=== PATIENT | male | born 1940 | race Caucasian/White ===

== ENCOUNTER → 2016-11-13 | Outpatient (CLI) | payer OTHER ==
[2016-11-13 13:34] LABS: Blood Urea Nitrogen 19 mg/dL (9-20); Non-African American GFR(MDRD) >60 (>60 ml/min/1.73 sqM)
--- NOTE | 2016-11-13 15:55 | CT ---
EXAMINATION TYPE: CT chest wo/w con DATE OF EXAM: 11/13/2016 COMPARISON: NONE HISTORY: 75 year-old male shortness of breath, Dyspnea TECHNIQUE: Contiguous axial scanning of the chest before and after the administration of 100 ml mL of Omnipaque 300. Coronal/sagittal reconstructions performed. CT DLP: 1443mGycm. Automatic exposure control utilized for a dose reduction. FINDINGS: There is heterogeneous enlargement of the right lobe of the thyroid gland which has a substernal exte nsion extending 2.9 cm below the sternal notch. There is nodular extension measures 4.4 cm and has he terogeneous central hypodensity. Small 1.1 cm hypodensity in the diminutive left lobe of the thyroid gland which is also seen somewhat low lying. The heart is normal size without pericardial effusion. Mild coronary vessel calcifications are presen t in remarkable for coronary artery disease. Ascending aorta is ectatic at 3.9 cm. Mild atherosclerotic arch calcifications with a conventional ar ch vessel branching anatomy. Upper descending thoracic aorta is mildly aneurysmal at 3.1 cm. Ectatic lower descending thoracic aorta at 2.7 cm. Enlarged right and left main pulmonary arteries measuring 2.9 and 3.0 cm, respectively, compatible wi th underlying pulmonary arterial hypertension. Scattered nonenlarged mediastinal lymph nodes are present. Visualized upper abdomen shows scattered subcentimeter hypodensities within the liver. There is also a 1 cm area of nodular enhancement in the right hepatic dome axial image 56. Mild diffuse bronchial wall thickening and mild to moderate upper lung predominant centrilobular emph ysema. There is mild right basilar bronchiectasis. Calcified granuloma at the medial posterior right base. Strandy atelectasis/scar within the inferior lingula. No consolidation or pleural effusion. Bones: Mild to moderate multilevel degenerative disc disease. There is a central disc herniation at T 3-T4 and disc osteophyte complex at T8-T9. No osseous destructive process. IMPRESSION: 1. Heterogeneous enlargement of the right lobe of the thyroid gland which shows substernal extension by 2.9 cm. An underlying nodule could measure up to 4.4 cm. Thyroid ultrasound can further evaluate. 2. COPD with mild to moderate emphysema and pulmonary arterial hypertension. 3. Mild right basilar bronchiectasis this probably chronic postinflammatory. Additional scattered are as of atelectasis or scarring in the lower lungs. 4. A few subcentimeter hypodensities within the liver are nonspecific and probably represent cysts. T here is a 1 cm area of nodular enhancement in the right hepatic dome which can be reassessed with six -month follow-up ultrasound to exclude any enlarging lesions.
== END | disposition home or self-care (01) ==
LOC: RADCTMAIN 11:41
PROVIDERS: ATTEND Family Medicine
DX: J43.9 Emphysema, unspecified (principal); J47.9 Bronchiectasis, uncomplicated; I27.2 Other secondary pulmonary hypertension; E04.1 Nontoxic single thyroid nodule; Z00.00 Encounter for general adult medical examination without abnormal findings
CPT/HCPCS: 82565; 84520; 71270; 36415; Q9967

== ENCOUNTER 2017-04-01 12:09 | Day surgery (SDC) | payer MEDICARE, OTHER ==
[2017-04-01 12:57] VITALS: TEMP 98
[2017-04-01 13:04] LABS: Glucose,Whole Blood 152 mg/dL (75-99)
[2017-04-01 14:18] VITALS: BP 150/84; PULSE 64; RESP 18
--- NOTE | 2017-04-01 14:52 | US ---
EXAMINATION TYPE: US FNA thyroid DATE OF EXAM: 04/01/2017 COMPARISON: Ultrasound thyroid 01/28/2017 HISTORY: Thyroid nodule. Maximal barrier technique was utilized. After informed consent, skin overlying the lesion was locali zed with ultrasound and the overlying skin prepped and draped. Ultrasound was utilized using sterile technique. Lidocaine was used for local anesthesia. Five passes with a 25-gauge needle were made int o the lower pole right thyroid nodule and aspirated specimen was submitted to cytology. Following th e procedure hemostasis achieved. No immediate complication. The patient discharged in stable condit ion. IMPRESSION: STATUS POST ULTRASOUND GUIDED FINE NEEDLE ASPIRATION OF THYROID NODULE, PATHOLOGY IS PEND ING. THIS PROCEDURE WAS PERFORMED BY THE UNDERSIGNED.
== END 2017-04-01 13:55 | disposition home or self-care (01) ==
LOC: RADPROMAIN 12:09
PROVIDERS: ATTEND Internal Medicine
DX: E04.2 Nontoxic multinodular goiter (principal)
CPT/HCPCS: 10022; 36415; 76942; 88173; 88305

== ENCOUNTER → 2017-07-12 | Outpatient (CLI) | payer OTHER ==
--- NOTE | 2017-07-12 14:42 | US ---
EXAMINATION TYPE: US thyroid st tissue head/neck DATE OF EXAM: 07/12/2017 COMPARISON: US CLINICAL HISTORY: thyroid Nodules E04.1. GLAND SIZE: Right Lobe: 4.7 x 2.7 x 2.6 cm Overall Parenchyma: heterogenous Left Lobe: 3.0 x 1.9 x 1.4 cm Overall Parenchyma: Isthmus Thickness: cm NODULES RIGHT: # of nodules measured on right: 2 1. 1.2 X 1.3 x 1.0 cm anechoic mixed nodule at the upper pole with well-defined margins . This nod ule is taller than wide and shows no intranodular vascularity. Prior size: 1.6 x 1.1 x 1.3 cm 2. 3.2 X 2.2 x 2.9 cm isoechoic mixed nodule at the mid pole with well-defined margins. This nodule is wider than tall and shows intranodular vascularity. Prior size: 3.2 x 3.3 x 2.1 cm LEFT: # of nodules measured on left: 1 1. 1.8 X 1.2 x 1.3 cm isoechoic mixed nodule at the mid pole with well-defined margins. This nodul e is wider than tall and shows intranodular vascularity. Prior size: 1.8 x 1.2 x 1.2 cm ISTHMUS: # of nodules measured in the isthmus: 0 Patient with large neck, SOB and had to sit up for test. Technically difficult. Bilateral neck scanned, no evidence of lymphadenopathy. IMPRESSION: Nonspecific thyroid nodularity is noted.
== END | disposition home or self-care (01) ==
LOC: RADUSWWP 13:45
DX: E04.2 Nontoxic multinodular goiter (principal)
CPT/HCPCS: 76536

== ENCOUNTER → 2018-05-13 | Outpatient (CLI) | payer MEDICARE ==
[~2018-05-13] MED LIST: REGADENOSON 0.4 MG/5 ML SYRINGE IV ONE
--- NOTE | 2018-05-13 12:43 | NM ---
EXAMINATION TYPE: NM stress lexiscan cardiolite DATE OF EXAM: 05/13/2018 COMPARISON: NONE HISTORY: Abnormal EKG TECHNIQUE: After the intravenous administration of 9.31 mCi Tc 99m Sestamibi - Cardiolite resting SP ECT images acquired 45 minutes post injection. The patient received 0.4mg Lexiscan, 24.6 mCi Tc 99m Sestamibi - Stress images obtained [address] injection FINDINGS: Review of stress and rest SPECT images demonstrates no distinct perfusion abnormality. Artifact is s een within the inferolateral wall on the rest images only, likely attributable to gastrointestinal ar tifact. Gated analysis shows normal wall motion with an estimated left ventricular ejection fraction of 64 %. TID is calculated within normal limits at 1.02. IMPRESSION: No scintigraphic evidence for reversible ischemia.
--- NOTE | 2018-05-16 09:37 | EST ---
EXERCISE STRESS AGE: 77 SEX: M HT: 5'10" WT: 248 PROTOCOL: Lexiscan Cardiolite Stress Test HEART RATE REST: 74 BLOOD PRESSURE REST: 163/78 MAXIMUM HEART RATE ACHIEVED: 87 MAXIMUM BLOOD PRESSURE: 166/84 INDICATIONS: Abnormal EKG CLINICAL INFORMATION: Baseline EKG shows sinus rhythm, normal axis, normal intervals. The patient was given intravenous Lexiscan as per protocol. Did not have chest pain or diagnostic ST-segment depression. CONCLUSION: 1. Negative stress test by EKG criteria. 2. Cardiolite portion of the stress test will be reported separately. MMODL / IJN: [id number] /
== END | disposition home or self-care (01) ==
LOC: RADNMMAIN 04-11 08:24
PROVIDERS: ATTEND Internal Medicine
DX: R94.31 Abnormal electrocardiogram [ECG] [EKG] (principal)
CPT/HCPCS: 93017; 78452; A9500; J2785

== ENCOUNTER → 2018-12-23 | Outpatient (CLI) | payer OTHER ==
--- NOTE | 2018-12-23 14:38 | US ---
EXAMINATION TYPE: US duplex aorta DATE OF EXAM: 12/23/2018 COMPARISON: NONE CLINICAL HISTORY: I73.89 Other specified peripheral vascular disease. EXAM MEASUREMENTS: Abdominal Aorta: Proximal: 2.7cm Mid: 2.0 Distal: obscured by overlying bowel Bifurcation: obscured by overlying bowel Patient has very large abdomen, large body habitus and severe overlying bowel gas. IMPRESSION: 1. Limited evaluation due to bowel gas. 2. The aorta tapers normally through its visualized proximal and mid course. Distal aorta obscured by bowel gas.
== END | disposition home or self-care (01) ==
LOC: RADUSWWP 12:18
PROVIDERS: ATTEND Physician Assistant Medical
DX: R14.3 Flatulence (principal)
CPT/HCPCS: 93979

== ENCOUNTER → 2019-04-19 | Outpatient (CLI) | payer MEDICARE ==
[2019-04-19 14:10] LABS: African American GFR (CKD) >90 (>60 ml/min/1.73 sqM); Blood Urea Nitrogen 21 mg/dL (9-20); Non-African American GFR(CKD) 79 (>60 ml/min/1.73 sqM)
--- NOTE | 2019-04-19 16:05 | CT ---
EXAMINATION TYPE: CT angio chest DATE OF EXAM: 04/19/2019 COMPARISON: Prior chest CT November 13, 2016 HISTORY: Thoracic aortic aneurysm. CT DLP: 1108.8 mGycm. Automated Exposure Control for Dose Reduction was Utilized. CONTRAST: CTA scan of the thorax is performed without and with IV Contrast, patient injected with 100 mL of Iso lisa 370, pulmonary embolism protocol. Three-D reconstructed images are created on independent worksta tion and reviewed. FINDINGS: LUNGS: Background moderate underlying emphysematous change. Moderate parenchymal scarring both lung b ases increased in prominence from prior study with some mild to moderate peribronchial wall thickenin g. Slightly elevated left hemidiaphragm. No pleural effusion or pneumothorax. No suspicious masses. MEDIASTINUM: There is satisfactory enhancement of the pulmonary artery and its branches, there is no CT evidence for pulmonary embolism. There are no greater than 1 cm hilar or mediastinal lymph nodes. No cardiomegaly or pericardial effusion is seen. Some coronary artery calcification redemonstrated . Persistent heterogeneous right thyroid lobe enlargement with substernal extension unchanged from pr ior. Ascending aorta measures up to 3.9 cm diameter axial image 28 not significantly changed from jose maria or study. Mild to moderate plaque in the arch is present and descending aorta without aneurysmal exte nsion. Slightly prominent central pulmonary arteries are stable. OTHER: Liver is low dense consistent with diffuse fatty infiltration. IMPRESSION: Stable 3.9 cm ascending aortic aneurysm
== END | disposition home or self-care (01) ==
LOC: RADCTMAIN 13:24
PROVIDERS: ATTEND Internal Medicine
DX: I71.2 Thoracic aortic aneurysm, without rupture (principal)
CPT/HCPCS: 82565; 84520; 71275; 36415; Q9967

== ENCOUNTER → 2020-01-08 | Outpatient (CLI) | payer MEDICARE ==
--- NOTE | 2020-01-09 10:17 | ECHOF ---
Referral Reason:I71.2 Thoracic aortic aneurysm, without rupture MEASUREMENTS -------- HEIGHT: 177.8 cm WEIGHT: 107.0 kg BP: RVIDd: 3.5 cm (< 3.3) IVSd: 1.4 cm (0.6 - 1.1) LVIDd: 3.4 cm (3.9 - 5.3) LVPWd: 1.4 cm (0.6 - 1.1) IVSs: 1.7 cm LVIDs: 2.5 cm LVPWs: 2.0 cm LA Diam: 2.9 cm (2.7 - 3.8) LAESV Index (A-L): 18.66 ml/m Ao Diam: 3.8 cm (2.0 - 3.7) AV Cusp: 1.9 cm (1.5 - 2.6) MV EXCURSION: 10.955 mm (> 18.000) MV EF SLOPE: 32 mm/s (70 - 150) EPSS: 1.0 cm MV E Rivas: 0.65 m/s MV DecT: 284 ms MV A Rivas: 0.88 m/s MV E/A Ratio: 0.74 RAP: 5.00 mmHg RVSP: 36.93 mmHg FINDINGS -------- This was a technically adequate study. The left ventricular size is normal. There is moderate concentric left ventricular hypertrophy. O verall left ventricular systolic function is normal with, an EF between 55 - 60 %. The right ventricle is normal in size. Normal LA size by volume 22+/-6 ml/m2. The right atrium is normal in size. Interatrial and interventricular septum intact. There is mild aortic valve sclerosis. Trace to mild aortic regurgitation. The mitral valve leaflets are mildly thickened. Mild mitral annular calcification present. There is trace to mild mitral regurgitation. Mild tricuspid regurgitation present. There is mild pulmonary hypertension. The right ventricular systolic pressure, as measured by Doppler, is 36.93mmHg. Trace/mild (physiologic) pulmonic regurgitation. The aortic root is dilated measuring 3.8cm. Normal inferior vena cava with normal inspiratory collapse consistent with estimated right atrial pre ssure of 5 mmHg. There is no pericardial effusion. CONCLUSIONS -------- 1. The left ventricular size is normal. 2. There is moderate concentric left ventricular hypertrophy. 3. Overall left ventricular systolic function is normal with, an EF between 55 - 60 %. 4. The right ventricle is normal in size. 5. There is mild aortic valve sclerosis. 6. Trace to mild aortic regurgitation. 7. The mitral valve leaflets are mildly thickened. 8. Mild mitral annular calcification present. 9. There is trace to mild mitral regurgitation. 10. Mild tricuspid regurgitation present. 11. There is mild pulmonary hypertension. 12. The right ventricular systolic pressure, as measured by Doppler, is 36.93mmHg. 13. Trace/mild (physiologic) pulmonic regurgitation. 14. The aortic root is dilated measuring 3.8cm. 15. There is no pericardial effusion. WASHER REPAIRMAN: USMAN Chou
== END | disposition home or self-care (01) ==
LOC: RADECHMAIN 13:07
PROVIDERS: ATTEND Internal Medicine
DX: I08.3 Combined rheumatic disorders of mitral, aortic and tricuspid valves (principal); I27.20 Pulmonary hypertension, unspecified; I37.1 Nonrheumatic pulmonary valve insufficiency; I77.810 Thoracic aortic ectasia
CPT/HCPCS: 93306

== ENCOUNTER 2020-12-11 15:42 | Emergency (ER) | payer MEDICARE, OTHER ==
[2020-12-11 15:54] VITALS: TEMP 98
--- NOTE | 2020-12-11 16:23 | ED ---
General Adult HPI - General Chief complaint: Arrhythmia/Palpitations Stated complaint: Abn EKG,Chest Pain, sent by pcp Time Seen by Provider: 12/11/20 15:50 Source: patient, RN notes reviewed, old records reviewed Mode of arrival: wheelchair Limitations: no limitations - History of Present Illness Initial comments: This is a 80-year-old male who presents emergency Department stating that he was sent in because his visiting nurse told him his heart was racing and it was irregular and he possibly had atrial fibrillation. Patient states he had no symptoms whatsoever. Patient is a diabetic. Patient states he had no palpitations no chest pain denies any shortness of breath worsened normal. Patient states he has COPD but his symptoms have stayed the same. Patient denies any recent fever chills or cough. Patient denies any lightheadedness patient denies any dizziness. Patient denies any numbness weakness. Patient denies headache. Patient denies abdominal pain patient denies nausea vomiting diarrhea. Patient denies any increased leg swelling or calf tenderness. - Related Data Home Medications Medication Instructions Recorded Confirmed Furosemide [Lasix] 40 mg PO DAILY 01/01/15 12/11/20 atenoloL [Tenormin] 50 mg PO BID 01/01/15 12/11/20 metFORMIN HCL [Glucophage] 1,000 mg PO BID 01/01/15 12/11/20 glipiZIDE [Glucotrol] 20 mg PO BID 03/11/17 12/11/20 Albuterol Inhaler [Ventolin Hfa 2 puff INHALATION RT-QID PRN 12/11/20 12/11/20 Inhaler] Albuterol Nebulized [Ventolin 2.5 mg INHALATION RT-QID PRN 12/11/20 12/11/20 Nebulized] Atorvastatin Calcium [Lipitor] 20 mg PO HS 12/11/20 12/11/20 Budesonide/Formoterol Fumarate 1 puff INHALATION RT-BID 12/11/20 12/11/20 [Symbicort 80-4.5 Mcg Inhaler] Dulaglutide [Trulicity] 3 mg SQ Q7D 12/11/20 12/11/20 Ipratropium Nebulized [Atrovent 0.5 mg INHALATION RT-QID PRN 12/11/20 12/11/20 Nebulized 0.2 MG/ML] Potassium Chloride ER [K-Dur 10] 10 meq PO DAILY 12/11/20 12/11/20 Tamsulosin [Flomax] 0.4 mg PO DAILY 12/11/20 12/11/20 Allergies Allergy/AdvReac Type Severity Reaction Status Date / Time clindamycin Allergy Rash/Hives Verified 12/11/20 17:15 silver sulfadiazine Allergy Rash/Hives Verified 12/11/20 17:15 [From Rahul] Review of Systems ROS Statement: Those systems with pertinent positive or pertinent negative responses have been documented in the HPI. ROS Other: All systems not noted in ROS Statement are negative. Past Medical History Past Medical History: COPD, GERD/Reflux, Hearing Disorder / Deafness, Hypertension, Thyroid Disorder Additional Past Medical History / Comment(s): meniere's disease; Ca lesion on nose while ago; cellulitis ruperto. legs, recent COPD and Emphysema diagnosis History of Any Multi-Drug Resistant Organisms: None Reported Past Surgical History: Back Surgery, Ear Surgery Past Anesthesia/Blood Transfusion Reactions: No Reported Reaction Past Psychological History: No Psychological Hx Reported Smoking Status: Never smoker Past Alcohol Use History: None Reported Past Drug Use History: None Reported - Past Family History Mother Family Medical History: Cancer General Exam - General Exam Comments Initial Comments: GENERAL: Patient is well-developed and well-nourished. Patient is nontoxic and well- hydrated and is in no acute distress. ENT: Neck is soft and supple. No significant lymphadenopathy is noted. Oropharynx is clear. Moist mucous membranes. Neck has full range of motion without e liciting any pain. EYES: The sclera were anicteric and conjunctiva were pink and moist. Extraocular movements were intact and pupils were equal round and reactive to light. Eyelids were unremarkable. PULMONARY: Unlabored respirations. Good breath sounds bilaterally. No audible rales rhonchi or wheezing was noted. CARDIOVASCULAR: Patient is tachycardic at about 100 beats a minute and his heart rate is irregular. ABDOMEN: Soft and nontender with normal bowel sounds. No palpable organomegaly was noted. There is no palpable pulsatile mass. SKIN: Skin is clear with no lesions or rashes and otherwise unremarkable. NEUROLOGIC: Patient is alert and oriented x3. Cranial nerves II through XII are grossly intact. Motor and sensory are also intact. Normal speech, volume and content. Symmetrical smile. MUSCULOSKELETAL: Normal extremities with adequate strength and full range of motion. No lower extremity swelling or edema. No calf tenderness. LYMPHATICS: No significant lymphadenopathy is noted PSYCHIATRIC: Normal psychiatric evaluation. Limitations: no limitations Course Vital Signs 12/11/20 15:48 Temperature 98.0 F Pulse Rate 119 H Respiratory 20 Rate Blood Pressure 128/89 O2 Sat by Pulse 92 L Oximetry Medical Decision Making - Medical Decision Making EKG shows a sinus rhythm at 89 bpm with occasional PVC [place] interval 142 QRS is 88 QT interval 336 QTC is 408. Patient also has occasional PAC. On the monitor it look like patient might be in A. fib so repeat EKG did show sinus tachycardia with multiple PACs at a rate of 115 bpm [place] interval is 164 QRS is 92 QT interval 336 QTC is 464 patient's EKG shows no ST segment elevation or depression. Patient remained asymptomatic throughout his ED stay. Since the patient was not in atrial fibrillation and the patient did not want to stay I suggest he follow up with his primary medical care doctor for a event monitor and then follow up with cardiology. - Lab Data Result diagrams: 12/11/20 16:22 12/11/20 16:22 Lab Results 12/11/20 12/11/20 12/11/20 Range/Units 16:22 16:22 16:22 WBC 11.4 H (3.8-10.6) k/uL RBC 5.34 (4.30-5.90) m/uL Hgb 15.4 (13.0-17.5) gm/dL Hct 46.7 (39.0-53.0) % MCV 87.5 (80.0-100.0) fL MCH 28.9 (25.0-35.0) pg MCHC 33.0 (31.0-37.0) g/dL RDW 14.2 (11.5-15.5) % Plt Count 311 (150-450) k/uL MPV 7.1 Neutrophils % 68 % Lymphocytes % 20 % Monocytes % 7 % Eosinophils % 3 % Basophils % 0 % Neutrophils # 7.7 (1.3-7.7) k/uL Lymphocytes # 2.3 (1.0-4.8) k/uL Monocytes # 0.8 (0-1.0) k/uL Eosinophils # 0.3 (0-0.7) k/uL Basophils # 0.1 (0-0.2) k/uL PT 10.8 (9.0-12.0) sec INR 1.0 (<1.2) APTT 23.6 (22.0-30.0) sec Sodium 134 L (137-145) mmol/L Potassium 4.1 (3.5-5.1) mmol/L Chloride 95 L (98-107) mmol/L Carbon Dioxide 27 (22-30) mmol/L Anion Gap 12 mmol/L BUN 19 (9-20) mg/dL Creatinine 0.82 (0.66-1.25) mg/dL Est GFR (CKD-EPI)AfAm >90 (>60 ml/min/1.73 sqM) Est GFR (CKD-EPI)NonAf 85 (>60 ml/min/1.73 sqM) Glucose 182 H (74-99) mg/dL Calcium 9.5 (8.4-10.2) mg/dL Magnesium 1.3 L (1.6-2.3) mg/dL Total Bilirubin 0.3 (0.2-1.3) mg/dL AST 20 (17-59) U/L ALT 18 (4-49) U/L Alkaline Phosphatase 89 (38-126) U/L Troponin I (0.000-0.034) ng/mL Total Protein 7.4 (6.3-8.2) g/dL Albumin 4.3 (3.5-5.0) g/dL TSH 1.550 (0.465-4.680) mIU/L 12/11/20 Range/Units 16:22 WBC (3.8-10.6) k/uL RBC (4.30-5.90) m/uL Hgb (13.0-17.5) gm/dL Hct (39.0-53.0) % MCV (80.0-100.0) fL MCH (25.0-35.0) pg MCHC (31.0-37.0) g/dL RDW (11.5-15.5) % Plt Count (150-450) k/uL MPV Neutrophils % % Lymphocytes % % Monocytes % % Eosinophils % % Basophils % % Neutrophils # (1.3-7.7) k/uL Lymphocytes # (1.0-4.8) k/uL Monocytes # (0-1.0) k/uL Eosinophils # (0-0.7) k/uL Basophils # (0-0.2) k/uL PT (9.0-12.0) sec INR (<1.2) APTT (22.0-30.0) sec Sodium (137-145) mmol/L Potassium (3.5-5.1) mmol/L Chloride (98-107) mmol/L Carbon Dioxide (22-30) mmol/L Anion Gap mmol/L BUN (9-20) mg/dL Creatinine (0.66-1.25) mg/dL Est GFR (CKD-EPI)AfAm (>60 ml/min/1.73 sqM) Est GFR (CKD-EPI)NonAf (>60 ml/min/1.73 sqM) Glucose (74-99) mg/dL Calcium (8.4-10.2) mg/dL Magnesium (1.6-2.3) mg/dL Total Bilirubin (0.2-1.3) mg/dL AST (17-59) U/L ALT (4-49) U/L Alkaline Phosphatase (38-126) U/L Troponin I <0.012 (0.000-0.034) ng/mL Total Protein (6.3-8.2) g/dL Albumin (3.5-5.0) g/dL TSH (0.465-4.680) mIU/L Disposition Clinical Impression: Sinus tachycardia, PAC (premature atrial contraction) Disposition: HOME SELF-CARE Condition: Good Instructions (If sedation given, give patient instructions): Premature Atrial Contractions (ED) Additional Instructions: Patient is to follow-up with his primary medical care doctor or cardiology to get an event monitor. Patient is to return for any symptoms. Is patient prescribed a controlled substance at d/c from ED?: No Referrals: [facility],Clinic [Primary Care Provider] - 1-2 days Time of Disposition: 17:47
[2020-12-11 16:41] LABS: Basophils # (A) 0.1 k/uL (0-0.2); Basophils % (A) 0 %; Eosinophils # (A) 0.3 k/uL (0-0.7); Eosinophils % (A) 3 %; HCT 46.7 % (39.0-53.0); HGB 15.4 gm/dL (13.0-17.5); Lymphocytes # (A) 2.3 k/uL (1.0-4.8); Lymphocytes % (A) 20 %; MCH 28.9 pg (25.0-35.0); MCV 87.5 fL (80.0-100.0); Mean Platelet Volume 7.1; Monocytes # (A) 0.8 k/uL (0-1.0); Monocytes % (A) 7 %; Neutrophils # (A) 7.7 k/uL (1.3-7.7); Neutrophils % (A) 68 %; Platelet Count 311 k/uL (150-450); RBC 5.34 m/uL (4.30-5.90); RDW 14.2 % (11.5-15.5); WBC 11.4 k/uL (3.8-10.6)
[2020-12-11 16:49] LABS: Partial Thromboplastin Time 23.6 sec (22.0-30.0); Prothrombin Time 10.8 sec (9.0-12.0)
[2020-12-11 16:54] LABS: ALT 18 U/L (4-49); AST 20 U/L (17-59); African American GFR (CKD) >90 (>60 ml/min/1.73 sqM); Albumin 4.3 g/dL (3.5-5.0); Alkaline Phosphatase 89 U/L (38-126); Anion Gap 12 mmol/L; Blood Urea Nitrogen 19 mg/dL (9-20); Calcium 9.5 mg/dL (8.4-10.2); Carbon Dioxide 27 mmol/L (22-30); Chloride 95 mmol/L (98-107); Glucose 182 mg/dL (74-99); Magnesium 1.3 mg/dL (1.6-2.3); Non-African American GFR(CKD) 85 (>60 ml/min/1.73 sqM); Potassium 4.1 mmol/L (3.5-5.1); Sodium 134 mmol/L (137-145); Total Bilirubin 0.3 mg/dL (0.2-1.3); Total Protein 7.4 g/dL (6.3-8.2)
--- NOTE | 2020-12-11 17:08 | XR ---
EXAMINATION TYPE: XR chest 2V DATE OF EXAM: 12/11/2020 COMPARISON: CT 04/19/2019. HISTORY: Chest pain. TECHNIQUE: Frontal and lateral views of the chest are obtained. FINDINGS: There is mild bibasilar atelectasis/scarring. No significant patchy airspace opacity, pleu ral effusion, or pneumothorax seen. The cardiac silhouette size is within normal limits. The osseo us structures are intact. IMPRESSION: No acute cardiopulmonary process.
[2020-12-11 18:07] VITALS: BP 98/64; PULSE 99; RESP 18
== END 2020-12-11 18:26 | disposition home or self-care (01) ==
LOC: EC 15:42
DX: I49.1 Atrial premature depolarization (principal); R00.0 Tachycardia, unspecified; J44.9 Chronic obstructive pulmonary disease, unspecified; I10 Essential (primary) hypertension; H91.90 Unspecified hearing loss, unspecified ear; E11.9 Type 2 diabetes mellitus without complications; Z79.84 Long term (current) use of oral hypoglycemic drugs; Z88.1 Allergy status to other antibiotic agents; Z88.2 Allergy status to sulfonamides; Z79.899 Other long term (current) drug therapy; Z79.51 Long term (current) use of inhaled steroids
CPT/HCPCS: 36415; 71046; 80053; 83735; 84443; 84484; 85025; 85610; 85730; 93005; 99285

== ENCOUNTER → 2021-01-20 | Outpatient (CLI) | payer OTHER ==
--- NOTE | 2021-01-22 10:05 | P.ARTDOP ---
Arterial Doppler LOWER EXTREMITY ARTERIAL DOPPLER: DATE OF SERVICE: 01/20/2021 Reason for study: Suspected lower extremity occlusive disease. Doppler waveforms: Multiphasic throughout bilaterally. More blunting on the left than the right. Digital waveforms poor on the left.. Pulse volume recording: []. Pressure gradients: Above the low thigh on the left and across the knee. Ankle-brachial indices: Greater than 1 on the right and 0.66 on the left. Toe brachial indices: 0.48 on the right, not recorded on the left Impression: On the right we have mild distal disease. On the left there is moderate left fem-pop disease. Cannot rule out iliac component. Clinical correlation recommended..
== END | disposition home or self-care (01) ==
LOC: RADUSWWP 14:02
DX: I73.9 Peripheral vascular disease, unspecified (principal)
CPT/HCPCS: 93923

== ENCOUNTER → 2021-01-22 | Outpatient (CLI) | payer OTHER ==
--- NOTE | 2021-01-22 15:13 | US ---
EXAMINATION TYPE: US thyroid st tissue head/neck DATE OF EXAM: 01/22/2021 COMPARISON: NONE CLINICAL HISTORY: E04.1 THYROID NODULES. GLAND SIZE: Right Lobe: 5.3 x 3.0 x 3.6 cm Overall Parenchyma: heterogenous Left Lobe: 4.4 x 1.4 x 2.6 cm Overall Parenchyma: heterogeneous Isthmus Thickness: 0.4 cm NODULES Technically difficult study. Patient has a short, thick, sinewy neck and had to sit up during test. RIGHT: # of nodules measured on right: 2 1. 1.4 X 1.3 x 1.2 cm, upper, cystic or almost completely cystic, anechoic nodule, which is taller than wide, with smooth margins, without echogenic foci. Prior size: 1.2 X 1.3 x 1.0 cm 2. 1.8 X 1.4 x 1.8 cm, lower, cystic or almost completely cystic, anechoic nodule, which is wider t castro tall, with smooth margins, without echogenic foci. Prior size: 3.2 X 2.2 x 2.9 cm LEFT: # of nodules measured on left: 1 1. 1.9 X 1.4 x 2.0cm, mid, mixed cystic and solid, isoechoic nodule, which is wider than tall, wit h ill-defined margins, without echogenic foci. Prior size: 1.8 X 1.2 x 1.3cm ISTHMUS: # of nodules measured in the isthmus: 0 Bilateral neck scanned, no evidence of lymphadenopathy. IMPRESSION: Nonspecific thyroid nodularity.
== END | disposition home or self-care (01) ==
LOC: RADUSWWP 14:26
PROVIDERS: ATTEND Family Medicine
DX: E04.2 Nontoxic multinodular goiter (principal)
CPT/HCPCS: 76536

== ENCOUNTER → 2021-07-22 | Outpatient (CLI) | payer OTHER ==
--- NOTE | 2021-07-22 13:22 | US ---
EXAMINATION TYPE: US thyroid st tissue head/neck DATE OF EXAM: 07/22/2021 COMPARISON: US CLINICAL HISTORY: E04.1. Nodule. GLAND SIZE: Right Lobe: 5.9 x 3.4 x 2.8 cm Overall Parenchyma: heterogenous Left Lobe: 4.4 x 2.1 x 2.4 cm Overall Parenchyma: heterogeneous Isthmus Thickness: 0.28 cm NODULES RIGHT: # of nodules measured on right: 2 1. 1.7 X 1.4 x 2.6 cm, upper lateral, mixed cystic and solid, anechoic nodule, which is taller than wide, with smooth margins, without echogenic foci. Prior size: 1.4 x 1.3 x 1.2 cm 2. 1.9 X 2.5 x 1.4 cm, lower mid, cystic or almost completely cystic, anechoic nodule, which is wid er than tall, with smooth margins, without echogenic foci. Prior size: 1.9 x 2.5 x 1.4 cm LEFT: # of nodules measured on left: 1 1. 2.8 X 1.7 x 2.0 cm, mid mid, mixed cystic and solid, heterogenous isoechoic nodule, which is anatoly ler than wide, with smooth margins, without echogenic foci. This has enlarged from prior study. TR 4 Prior size: 1.9 x 1.4 x 2.0 cm ISTHMUS: # of nodules measured in the isthmus: 0 Bilateral neck scanned, no evidence of lymphadenopathy. IMPRESSION: Moderately suspicious nodule left lobe thyroid. Fine-needle aspiration is recommended. 2017 ACR TI-RADS LEVEL: *Highest TI-RADS level nodule reported
== END | disposition home or self-care (01) ==
LOC: RADUSWWP 12:29
DX: E04.1 Nontoxic single thyroid nodule (principal)
CPT/HCPCS: 76536

== ENCOUNTER 2021-12-05 09:14 | Day surgery (SDC) | payer OTHER ==
[2021-12-05 09:48] VITALS: TEMP 97.8
[2021-12-05 10:04] LABS: Glucose,Whole Blood 179 mg/dL (70-110)
[2021-12-05 10:21] VITALS: BP 136/86; PULSE 90
[2021-12-05 10:34] VITALS: RESP 18
--- NOTE | 2021-12-05 11:55 | US ---
ULTRASOUND GUIDED FNA THYROID BIOPSY: CLINICAL HISTORY: Left thyroid nodule FINDINGS: The procedure was explained to the patient. The risks, complications, benefits and alternatives were discussed and any questions were answered. Informed consent was obtained. Patient was placed supin e on the ultrasound table and prepped and draped in the usual sterile fashion. Utilizing a 25 gauge needle, five passes were made into the requested left thyroid nodule. Patient was stable throughout the procedure. Pathology is pending. All elements of maximal barrier technique were utilized. IMPRESSION: 1. Successful ultrasound guided FNA thyroid biopsy.
== END 2021-12-05 10:35 | disposition home or self-care (01) ==
LOC: RADPROMAIN 09:14
DX: C73 Malignant neoplasm of thyroid gland (principal); C44.90 Unspecified malignant neoplasm of skin, unspecified; Z79.51 Long term (current) use of inhaled steroids; Z79.899 Other long term (current) drug therapy; Z79.84 Long term (current) use of oral hypoglycemic drugs; Z79.01 Long term (current) use of anticoagulants; Z88.3 Allergy status to other anti-infective agents; Z91.09 Other allergy status, other than to drugs and biological substances
CPT/HCPCS: 10005; 88173; 88305

== ENCOUNTER → 2022-03-25 | Outpatient (CLI) | payer OTHER ==
--- NOTE | 2022-03-25 14:53 | CT ---
EXAMINATION TYPE: CT neck chest w con DATE OF EXAM: 03/25/2022 COMPARISON: None HISTORY: cough, hx of thyroid ca CT DLP: 1367.6 mGycm CONTRAST: CT scan of the neck is performed with IV Contrast, patient injected with 100 mL of Isovue 300. Contrast enhanced CT of the neck was performed from the skull base through the lung apices. AIRWAY: The supraglottic, glottic, and subglottic portions of the airway appear patent and free of mass. SALIVARY GLANDS: The submandibular and parotid glands are free of mass or inflammatory process. THYROID GLAND: There is an approximate 4.5 x 3.0 cm complex partially cystic partially solid mass of the right thyroid lobe with substernal extension. Mass extends to the right paratracheal region. The left thyroid lobe is free of mass lesion. LYMPH NODES: No adenopathy seen greater than 1cm. LUNG APICES: No nodule or mass is seen. OTHER: Vascular structures are patent. No significant degenerative change of the cervical spine. N o abscess seen. Chronic sinusitis right maxillary sinus and to a lesser extent the left maxillary sin us. 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 EXAMINATION TYPE: CT neck chest w con DATE OF EXAM: 03/25/2022 COMPARISON: 04/19/2019 HISTORY: cough, hx of thyroid ca CT DLP: 1367.6 mGycm Automated exposure control for dose reduction was used. CONTRAST: CT scan of the chest is performed with IV Contrast, patient injected with 100 mL of Isovue 300. FINDINGS: LUNGS: The lungs are grossly clear, there is no concerning parenchymal mass or nodule identified. T here is no pleural effusion or pneumothorax seen. The tracheobronchial tree is patent. MEDIASTINUM: There are no greater than 1 cm hilar or mediastinal lymph nodes. No pericardial effusi on is seen. Thoracic aorta is of normal caliber. The heart is mildly enlarged. UPPER ABDOMEN: No significant abnormality appreciated. 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 IMPRESSION: No evidence for metastatic disease to the chest.
== END | disposition home or self-care (01) ==
LOC: RADCTMAIN 13:23
DX: Z01.812 Encounter for preprocedural laboratory examination (principal); D09.3 Carcinoma in situ of thyroid and other endocrine glands
CPT/HCPCS: 82565; 84520; 70491; 71260; 36415; Q9967

== ENCOUNTER → 2023-04-10 | Outpatient (CLI) | payer OTHER ==
--- NOTE | 2023-04-11 09:51 | MR ---
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 TECHNIQUE: Multi planar, multi sequence imaging was performed through the brain including: T1, T2, In version recovery, Diffusion weighted imaging, and gradient echo imaging. No gadolinium was given. FINDINGS: Prior area of stroke involving the right thalamus/basal ganglia with blooming artifact comp atible with hemosiderin deposition. Mild cerebral atrophy with proportional dilation of ventricular s ystem. Scattered foci of high T2 signal intensity are seen within the periventricular white matter. Midline structures show no abnormality. Diffusion-weighted imaging shows no evidence of restricted d iffusion. The susceptibility weighted images do not reveal any evidence for micro-hemorrhage. The bone marrow signal is within normal limits. Paranasal sinuses and mastoid air cells: Mild scattered paranasal sinus disease. High T2 signal withi n the bilateral mastoid air cells. Visualized orbits: Left aphakia. The right lens is intact. IMPRESSION: 1. No evidence of intracranial mass or acute/subacute infarct. Remote injury to the right basal gangl ia/right thalamus. 2. Nonspecific white matter changes, likely secondary to small vessel ischemic disease. 3. Mild generalized atrophy changes. 4. Minimal paranasal sinus disease. 5. Trace mastoid air cell effusions right greater than left.
== END | disposition home or self-care (01) ==
LOC: RADMRIMAIN 15:20
DX: I61.9 Nontraumatic intracerebral hemorrhage, unspecified (principal); R90.82 White matter disease, unspecified; G31.9 Degenerative disease of nervous system, unspecified; J34.89 Other specified disorders of nose and nasal sinuses
CPT/HCPCS: 70551

== ENCOUNTER → 2023-06-11 | Outpatient (CLI) | payer OTHER ==
--- NOTE | 2023-06-11 14:32 | XR ---
EXAMINATION TYPE: XR foot complete LT DATE OF EXAM: 06/11/2023 CLINICAL HISTORY: pain TECHNIQUE: Frontal, lateral and oblique images of the left foot are obtained. COMPARISON: None. FINDINGS: There is no acute fracture/dislocation evident. The joint spaces appear within normal rodriguez its. The overlying soft tissue appears unremarkable. IMPRESSION: There is no acute fracture or dislocation. ICD 10 NO FRACTURE, INITIAL EVALUATION
== END | disposition home or self-care (01) ==
LOC: RADXRMAIN 13:57
PROVIDERS: ATTEND Podiatrist
DX: M86.8X7 Other osteomyelitis, ankle and foot (principal); R52 Pain, unspecified

== ENCOUNTER → 2023-07-09 | Outpatient (CLI) | payer OTHER | END | disposition home or self-care (01) | LOC: LABWHC1 12:02 | PROVIDERS: ATTEND Internal Medicine Endocrinology, Diabetes & Metabolism | DX: C73 Malignant neoplasm of thyroid gland (principal) | CPT/HCPCS: 36415; 84443 ==

== ENCOUNTER → 2024-05-26 | Outpatient (CLI) | payer OTHER ==
[2024-05-26 19:25] LABS: BUN/Creat Ratio 16.76 Ratio (12.00-20.00); Blood Urea Nitrogen 28.5 mg/dL (9.0-27.0); Calcium 8.8 mg/dL (8.7-10.3); Carbon Dioxide 29.1 mmol/L (21.6-31.8); Chloride 99 mmol/L (96-109); Glucose 143 mg/dL (70-110); Potassium 4.8 mmol/L (3.5-5.5); Sodium 138 mmol/L (135-145)
[2024-05-26 21:01] LABS: NT-Pro-B-Type Natriuretic Pept 194 pg/mL (0-450)
== END | disposition home or self-care (01) ==
LOC: LABWHC1 13:40
PROVIDERS: ATTEND Internal Medicine Cardiovascular Disease
DX: I50.9 Heart failure, unspecified (principal)
CPT/HCPCS: 36415; 80048; 83880; 84443